=== PATIENT | female | born 1995 | race Caucasian/White ===

== ENCOUNTER 2016-12-13 17:39 | Emergency (ER) | payer BC, OTHER ==
[2016-12-13 17:46] VITALS: RESP 20
[2016-12-13] MEDS ORDERED: IPRATROPIUM/ALBUTEROL 3 ML DEYVIAL IH ONE (17:47)
[2016-12-13] MEDS ORDERED: IBUPROFEN 600 MG TAB PO ONE (17:51)
--- NOTE | 2016-12-13 19:26 | EDPHY ---
General Narrative: CHIEF COMPLAINT: Cough, sore throat, wheezing, shortness of breath HISTORY OF PRESENT ILLNESS: Patient complains of sudden onset of sore throat, chills, body aches, cough, shortness of breath. Symptoms started Monday in. They have been constant duration. Moderate to severe. Associated with occasional headache. She feels that she spiked a fever today. No neck pain or stiffness. No chest pain. She does have pain inspiration and cough. No abdominal pain. No urinary complaints. No other associated complaints or modifying factors. REVIEW OF SYSTEMS: Ten systems reviewed and are negative unless otherwise noted in the HPI PAST MEDICAL HISTORY: None PAST SURGICAL HISTORY: Tonsillectomy SOCIAL HISTORY: Nonsmoker. Is currently a student at [employer] FAMILY HISTORY: Noncontributory EXAMINATION General Appearance: Alert, no distress, nontoxic Head: normocephalic, atraumatic Eyes: Pupils equal and round, no conjunctival pallor or injection ENT, Mouth: Mucous membranes moist. Uvula midline. Airway is widely patent. There is posterior erythema and exudate. There is no peritonsillar abscess. No abnormality of the floor of the mouth. Neck: Normal inspection, supple, non-tender. Painless range of motion all planes. No meningismus or rigidity. Respiratory: No retractions or distress. Mild rhonchi. No diminishment or consolidation. Cardiovascular: Tachycardic rate. Regular rhythm. No murmur. Gastrointestinal: Abdomen is soft and nontender Back: non-tender, no bony abnormalities Neurological: A&O, nonfocal, normal gait Skin: Warm and dry, no rash Extremities: Nontender, no pedal edema Psychiatric: Mood and affect normal DIFFERENTIAL DIAGNOSES: Including but not limited to influenza, pneumonia, bacterial bronchitis, viral bronchitis MDM: 7:25 p.m. Acute pharyngitis with cough, wheezing, shortness of breath, fever and malaise. Possibility of flu versus pneumonia versus bronchitis versus atypical strep pharyngitis. Respiratory pathogen panel is pending. Auscultation reveals mild wheezing status post DuoNeb treatment. I have ordered chest x-ray. She is in no acute distress. 7:30 p.m. Respiratory pathogen panel is positive for human rhino virus/enterovirus. Negative for influenza. X-ray pending. 8:45 p.m. Chest x-ray as read by me reveals no acute abnormality. The patient is feeling much better in the emergency department but does have positive viral test. Given the appearance of her throat I will treat without rapid strep test. Follow up with primary care physician. ED precautions discussed. Symptomatic medications as discussed. Patient is comfortable this plan discharged home stable condition. - History Smoking Status: Never smoked - Objective Vital Signs: Initial Vital Signs Temperature (C) 99.9 F 12/13/16 17:42 Heart Rate 97 12/13/16 17:42 Respiratory Rate 20 12/13/16 17:42 Blood Pressure 140/82 H 12/13/16 17:42 O2 Sat (%) 96 12/13/16 17:42 O2 Delivery Mode Room Air Allergies/Adverse Reactions: No Known Allergies Allergy (Verified 12/13/16 17:42) Home Medications: Medication Instructions Recorded Azithromycin [Zithromax] 250 mg PO DAILY #4 tab 12/13/16 Microbiology Results: MICROBIOLOGY 12/13/16 17:57 Nasal, Sinus - Swab Respiratory Panel (PCR) - Final Human Rhinovirus/Enterovirus Medications Given: Discontinued Medications Hydrocodone Bitart/Acetaminophen ([place] 5/325mg Prepack#6) 1 btl TAKEHOME EDNOW ONE Stop: 12/13/16 20:46 Last Admin: 12/13/16 21:02 Dose: 1 btl Albuterol/Ipratropium (Duoneb) 3 ml IH EDNOW ONE Stop: 12/13/16 17:48 Last Admin: 12/13/16 17:57 Dose: 3 ml Azithromycin (Zithromax) 500 mg PO EDNOW ONE PRN Reason: Protocol Stop: 12/13/16 20:46 Last Admin: 12/13/16 21:01 Dose: 500 mg Ibuprofen (Motrin) 600 mg PO EDNOW ONE Stop: 12/13/16 17:52 Last Admin: 12/13/16 17:56 Dose: 600 mg Departure - Departure Disposition: Home, Routine, Self-Care Clinical Impression: Respiratory infection due to enterovirus 68 Acute pharyngitis Qualifiers: Pharyngitis/tonsillitis etiology: unspecified etiology Qualified Code(s): J02.9 - Acute pharyngitis, unspecified Acute bronchitis Qualifiers: Bronchitis organism: unspecified organism Qualified Code(s): J20.9 - Acute bronchitis, unspecified Condition: Good Instructions: Pharyngitis (ED), Upper Respiratory Infection (ED), Acute Bronchitis (ED) Additional Instructions: 1. Medications as prescribed as needed 2. [id number] medications including Mucinex, ibuprofen and Sudafed as needed 3. Follow-up with primary care physician 4. ED precautions as discussed Referrals: NONE *PRIMARY CARE P,. [Primary Care Provider] - As per Instructions Jennifer Scott MD [Medical Doctor] - As per Instructions Stand Alone Forms: School Excuse Prescriptions: Azithromycin [Zithromax] 250 mg PO DAILY #4 tab
[2016-12-13] MEDS ORDERED: HYDROCOD/APAP 5/325 PREPACK#6 BTL TAKEHOME ONE (20:45)
[2016-12-13] MEDS ORDERED: AZITHROMYCIN 250 MG TAB PO ONE (20:45)
[2016-12-13 21:05] VITALS: BP 130/87; PULSE 75; TEMP 98.6; O2SAT 96
== END 2016-12-13 21:05 | disposition home or self-care (01) ==
DX: J98.8 Other specified respiratory disorders (principal); B97.19 Other enterovirus as the cause of diseases classified elsewhere; J02.9 Acute pharyngitis, unspecified; J20.9 Acute bronchitis, unspecified